=== PATIENT | male | born 1990 | race Hispanic/Latino ===

== ENCOUNTER 2017-09-06 20:22 | Emergency (ER) | payer SELFPAY ==
[2017-09-06] MEDS ORDERED: LIDOCAINE HCL 1% 20 ML VIAL ONE (20:43)
[2017-09-06] MEDS ORDERED: TETANUS/DIPHTHERIA TOXOID [ADULT] 0.5 ML VIAL IM ONE (20:44)
== END 2017-09-06 21:49 | disposition home or self-care (01) ==
LOC: EDH 20:22
DX: S61.211A Laceration without foreign body of left index finger without damage to nail, initial encounter (principal); W26.0XXA Contact with knife, initial encounter; Y93.89 Activity, other specified; Y92.098 Other place in other non-institutional residence as the place of occurrence of the external cause; Y99.8 Other external cause status
CPT/HCPCS: 12001; 90471; 90714